=== PATIENT | male | born 1940 | race Caucasian/White ===

== ENCOUNTER 2019-02-07 15:59 | Emergency (ER) | payer OTHER ==
[~2019-02-07] VITALS: Ht 154.9 cm; Wt 65.8 kg
[2019-02-07 16:05] VITALS: Ht 154.9 cm; Wt 65.8 kg
[2019-02-07 17:58] VITALS: BP 161/89
== END 2019-02-07 17:58 | disposition home or self-care (01) ==
LOC: ED 15:59
DX: J06.9 Acute upper respiratory infection, unspecified (principal); I10 Essential (primary) hypertension; E78.00 Pure hypercholesterolemia, unspecified